=== PATIENT | female | born 1995 ===

== ENCOUNTER 2017-03-28 15:20 | Inpatient (IN) ==
[2017-03-28 16:39] LABS: Basophils % 0.1 % (0.0-0.8); Hematocrit 34.3 VOL% (35.7-47.0); Hemoglobin 11.2 GM/DL (12.0-16.0); Immature Granulocytes % 0.8 %; Immature Granulocytes Absolute 0.15 #; Lymphocytes # 0.9 10*3/uL (1.4-4.0); Lymphocytes % 4.9 % (21.3-54.2); Mean Corpuscular HGB Conc 32.7 GM/DL (32-36); Mean Corpuscular Hemoglobin 30 PG (27-34); Mean Platelet Volume 11.8 FL (9.6-12.0); Monocytes # 0.5 10*3/uL (0.11-0.8); Monocytes % 2.5 % (1.7-12.7); Neutrophils # 16.6 10*3/uL (1.4-7.4); Neutrophils % 91.7 % (38.7-73.9); Platelet Count 248 T/CUMM (130-400); Red Blood Count 3.77 MC/CUMM (3.8-5.5); Red Cell Distribution Width 14.5 % (9.3-17.3); White Blood Count 18.1 T/CUMM (4-12)
[2017-03-28] MEDS ORDERED: ONDANSETRON 4 MG/2 ML VIAL IV PRN (16:41)
[2017-03-28 16:55] LABS: Calcium 8.8 MG/DL (8.5-10.1); Osmolality,Calculated 284.1 MOS/KG (273-304); Potassium 3.7 MMOL/L (3.5-5.1)
[2017-03-28 17:07] LABS: Band Neutrophils 1 % (0-10); Lymphocytes 3 % (20-55); Platelet Estimate Normal; Segmented Neutrophils 95 % (50-85); Total Cells Counted 100
[2017-03-28] MEDS: LACTATED RINGERS 1,000 ML IV SCH (17:45)
[2017-03-28] MEDS: PIPERACILLIN/TAZOBACTAM 3,375 MG in SODIUM CHLORIDE 0.9% 100 ML IV SCH (17:50)
[2017-03-28] MEDS: oxyCODONE/ACETAMINOPHEN 5-325 MG TABLET PO PRN (18:20)
--- NOTE | 2017-03-28 19:21 | OB/GYN Consult Note ---
Assessment and Plan (1) Labial abscess Status: Acute Assessment and plan: IV fluids, IV Zosyn, analgesic sitz baths continue present therapy will check a CBC with differential chemistry and urinalysis. Current Visit: Yes History of Present Illness Chief complaint: Labial abscess History of present illness: Ms. Gill is a 22 year old female Status post vaginal delivery approximately 8 weeks who presents with a red swollen localized edematous right labia. The labia was not fluctuant, she denies any fever chills, nor severe vaginal discharge. Symptoms have been progressing over the last week. She was evaluated in the ER in [place] received IV Rocephin and also analgesic and was followed by office on today's visit. The patient will be admitted for IV antibiotics sitz baths analgesic for the next 24-36 hours. 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 - Constitutional Vitals: Vital Signs Temp Pulse Resp BP Pulse Ox 03/28/17 16:15 98.2 F 80 18 119/65 96 General appearance: mild distress - Head Head exam: Present: normal inspection - Eye Eye exam: Present: EOMI Pupils: Present: ELVIN - ENT ENT exam: Present: normal exam - Neck Neck exam: Present: normal inspection - Respiratory Respiratory exam: Present: clear to auscultation bilaterally - Breast Breasts: as per HPI Menstruation: as per HPI - Cardiovascular Cardiovascular exam: Present: regular rate and rhythm - GI/Abdominal GI/Abdominal exam: Present: normal bowel sounds - Extremities Exam Extremities exam: Present: normal inspection - Back Exam Back exam: Present: normal inspection - Neurological Exam Neurological exam: Present: alert, oriented X3 - Psychiatric Psychiatric exam: Present: normal affect - Skin Skin exam: Present: normal color Results - Labs CBC & BMP: 03/28/17 16:23 03/28/17 16:23
[2017-03-28] MEDS: IBUPROFEN 800 MG TABLET PO PRN (22:00)
[2017-03-29] MEDS: PIPERACILLIN/TAZOBACTAM 3,375 MG in SODIUM CHLORIDE 0.9% 100 ML IV SCH ×3 (01:02→16:32)
[2017-03-29] MEDS: LACTATED RINGERS 1,000 ML IV SCH ×2 (05:44→16:32)
[2017-03-29] MEDS: oxyCODONE/ACETAMINOPHEN 5-325 MG TABLET PO PRN ×2 (07:25→16:25)
[2017-03-29] MEDS: IBUPROFEN 800 MG TABLET PO PRN (12:31)
--- NOTE | 2017-03-29 19:04 | Progress Note ---
Assessment and Plan (1) Labial abscess Status: Acute Assessment and plan: IV fluids, IV Zosyn, analgesic sitz baths continue present therapy will check a CBC with differential chemistry and urinalysis. Current Visit: Yes Family Medicine PN Sub Interval history: Labial abscess, abscess initially started to drain today. Cultured pending. Patient is denied any fever or chills. Will check a CBC with differential continue with IV antibiotics. We will I&D the labial abscess tomorrow on 30 March risks and benefits thoroughly discussed she is in full agreement. Exam (Progress Note) - Constitutional Vitals: Period Temp Pulse Resp BP Sys/Mulligan Pulse Ox Last 24 Hr 97.2 F-98.6 F 69-98 18-22 110-127/55-77 94-98 Results - Labs CBC & BMP: 03/28/17 16:23 03/28/17 16:23
[2017-03-29 19:27] LABS: Basophils % 0.2 % (0.0-0.8); Eosinophils # 0.1 10*3/uL (0.0-0.87); Hemoglobin 10.6 GM/DL (12.0-16.0); Immature Granulocytes % 0.7 %; Lymphocytes # 2.2 10*3/uL (1.4-4.0); Lymphocytes % 15.3 % (21.3-54.2); Mean Corpuscular HGB Conc 33.1 GM/DL (32-36); Mean Corpuscular Hemoglobin 30 PG (27-34); Mean Corpuscular Volume 90.4 FL (87-102); Mean Platelet Volume 11.8 FL (9.6-12.0); Monocytes # 0.7 10*3/uL (0.11-0.8); Monocytes % 4.6 % (1.7-12.7); Neutrophils # 11.2 10*3/uL (1.4-7.4); Neutrophils % 78.2 % (38.7-73.9); Platelet Count 231 T/CUMM (130-400); Red Blood Count 3.54 MC/CUMM (3.8-5.5); Red Cell Distribution Width 14.8 % (9.3-17.3); White Blood Count 14.3 T/CUMM (4-12)
[2017-03-30] MEDS: PIPERACILLIN/TAZOBACTAM 3,375 MG in SODIUM CHLORIDE 0.9% 100 ML IV SCH ×3 (00:15→20:33)
[2017-03-30] MEDS: oxyCODONE/ACETAMINOPHEN 5-325 MG TABLET PO PRN ×2 (00:15→17:58)
[2017-03-30 05:37] LABS: Basophils % 0.2 % (0.0-0.8); Eosinophils # 0.2 10*3/uL (0.0-0.87); Eosinophils % 1.5 % (0.00-10.9); Hematocrit 32.3 VOL% (35.7-47.0); Hemoglobin 10.3 GM/DL (12.0-16.0); Immature Granulocytes % 0.8 %; Lymphocytes # 2.4 10*3/uL (1.4-4.0); Lymphocytes % 19.8 % (21.3-54.2); Mean Corpuscular HGB Conc 31.9 GM/DL (32-36); Mean Corpuscular Hemoglobin 29 PG (27-34); Mean Corpuscular Volume 91.8 FL (87-102); Mean Platelet Volume 11.9 FL (9.6-12.0); Monocytes # 0.7 10*3/uL (0.11-0.8); Monocytes % 5.6 % (1.7-12.7); Neutrophils # 8.7 10*3/uL (1.4-7.4); Neutrophils % 72.1 % (38.7-73.9); Platelet Count 225 T/CUMM (130-400); Red Blood Count 3.52 MC/CUMM (3.8-5.5); Red Cell Distribution Width 14.7 % (9.3-17.3); White Blood Count 12.1 T/CUMM (4-12)
[2017-03-30 06:08] LABS: Hypochromasia Slight; Lymphocytes 21 % (20-55); Platelet Estimate Adequate; Segmented Neutrophils 73 % (50-85); Total Cells Counted 100
[2017-03-30 06:09] LABS: Ovalocytes Slight
[2017-03-30] MEDS ORDERED: PANTOPRAZOLE 40 MG TABLET PO ONE (08:52)
[2017-03-30] MEDS ORDERED: DIAZEPAM 5 MG TABLET PO ONE (08:52)
[2017-03-30] MEDS: LACTATED RINGERS 1,000 ML IV SCH (09:32)
[2017-03-30] MEDS ORDERED: ceFAZolin 1,000 MG VIAL ONE (10:25)
--- NOTE | 2017-03-30 10:39 | Operative Note ---
Date of procedure: 03/30/17 Procedure: Preoperative diagnosis: [] Right labial abscess Postoperative diagnosis: Same Anesthesia:[] General Estimated blood loss: [] 15 cc Surgeon: Dr. Pappas Findings: [] Large erythematous right labia with a small amount of pustular drainage extruding from the tiny opening Complications: None Procedure: I&D of a right labial abscess Patient was taken to the operating suite administration of general anesthesia placed by position. Perineum was prepped and draped in usual manner for major surgery. Small incision was made approximately 1 cm in length over the small area of drainage. Cultures were obtained using a Q-tip this was used to break up any loculated area of pus. Irrigation with syringe using 1 g of Ancef was then used into the opening. Using quarter inch iodoform gauze this was packed into the opening. Hemostasis was maintained all instruments were removed patient tolerated procedure well and explained the operative take care of him in stable condition. [] Surgeon / Physician: Walter Pappas Results - Labs CBC & BMP: 03/30/17 04:55 03/28/17 16:23 Discharge Plan - Discharge Medications No Action No Known Home Medications [No Known Home Medications] - Follow Up or Referral - Forms/Instructions
--- NOTE | 2017-03-30 10:53 | Anesthesia Post-Op ---
Anesthesia Post OP - Post Ansesthetic Evaluation Patient seen in post op: Yes Resp: within normal limits CV: within normal limits Mental: within normal limits Temp: within normal limits [id number]: within normal limits Nausea and Vomiting: within normal limits Pain: within normal limits
[2017-03-30] MEDS ORDERED: ONDANSETRON 4 MG/2 ML VIAL IV PRN (10:54)
[2017-03-30] MEDS ORDERED: SEVOFLURANE 1 UNIT/15 MINUTE INH ONE (10:57)
[2017-03-30] MEDS ORDERED: fentaNYL 100 MCG/2 ML VIAL ONE (10:57)
[2017-03-30] MEDS ORDERED: PROPOFOL 200 MG/20 ML VIAL IV ONE (10:57)
[2017-03-30] MEDS ORDERED: ACETAMINOPHEN 1,000 MG/100 ML VIAL IV ONE (10:58)
[2017-03-30] MEDS ORDERED: MIDAZOLAM 2 MG/2 ML VIAL ONE (10:58)
[2017-03-30] MEDS ORDERED: LACTATED RINGERS 1,000 ML IV SCH (11:00)
[2017-03-30] MEDS: HYDROmorphone 2 MG/1 ML VIAL IV PRN ×3 (11:02→11:24)
[2017-03-30] MEDS: IBUPROFEN 800 MG TABLET PO PRN (14:22)
[2017-03-30] MEDS: MEPERIDINE 50 MG TABLET PO PRN (20:33)
[2017-03-31] MEDS: PIPERACILLIN/TAZOBACTAM 3,375 MG in SODIUM CHLORIDE 0.9% 100 ML IV SCH ×3 (03:13→21:01)
[2017-03-31] MEDS: MEPERIDINE 50 MG TABLET PO PRN (09:52)
[2017-03-31] MEDS: LACTATED RINGERS 1,000 ML IV SCH (09:53)
[2017-03-31 11:28] LABS: Basophils % 0.2 % (0.0-0.8); Eosinophils # 0.3 10*3/uL (0.0-0.87); Hemoglobin 10.7 GM/DL (12.0-16.0); Immature Granulocytes % 2.2 %; Lymphocytes # 2.7 10*3/uL (1.4-4.0); Mean Corpuscular HGB Conc 33.4 GM/DL (32-36); Mean Corpuscular Hemoglobin 30 PG (27-34); Mean Corpuscular Volume 89.4 FL (87-102); Mean Platelet Volume 11.3 FL (9.6-12.0); Monocytes # 0.6 10*3/uL (0.11-0.8); Monocytes % 6.7 % (1.7-12.7); Neutrophils # 5.2 10*3/uL (1.4-7.4); Neutrophils % 57.9 % (38.7-73.9); Platelet Count 244 T/CUMM (130-400); Red Blood Count 3.58 MC/CUMM (3.8-5.5); Red Cell Distribution Width 14.5 % (9.3-17.3); White Blood Count 8.9 T/CUMM (4-12)
[2017-03-31 11:48] LABS: Eosinophils 4 % (0-10); Hypochromasia 1+; Lymphocytes 35 % (20-55); Platelet Estimate Adequate; Segmented Neutrophils 55 % (50-85); Total Cells Counted 100
--- NOTE | 2017-03-31 12:06 | Progress Note ---
Assessment and Plan (1) Labial abscess Status: Acute Assessment and plan: IV fluids, IV Zosyn, analgesic sitz baths continue present therapy will check a CBC with differential chemistry and urinalysis. Current Visit: Yes Family Medicine PN Sub Interval history: Postop day #1 Status post I&D of a right labial abscess. Awaiting cultures Patient is remained afebrile white count is decreased from 18-12 will check a CBC with differential today. Possible discharge in the a.m. Continue present therapy Exam (Progress Note) - Constitutional Vitals: Period Temp Pulse Resp BP Sys/Mulligan Pulse Ox Last 24 Hr 97.6 F-99.8 F 79-93 16-20 109-132/58-79 93-98 Results - Labs CBC & BMP: 03/31/17 11:22 03/28/17 16:23
[2017-03-31] MEDS: oxyCODONE/ACETAMINOPHEN 5-325 MG TABLET PO PRN (13:21)
[2017-04-01] MEDS: PIPERACILLIN/TAZOBACTAM 3,375 MG in SODIUM CHLORIDE 0.9% 100 ML IV SCH ×2 (04:08→11:52)
--- NOTE | 2017-04-01 17:34 | Discharge Summary ---
Hospital Course - Hospital Course Hospital Course: Postop day #3 Status post I&D of a labial abscess. Final cultures demonstrated staph aureus methicillin-resistant. This patient was taken to surgery I indeed cultures were obtained small amount of drainage was obtained with loculated pustular material. Incision was packed which removed 24 hours after surgery she ambulated well voiding well and was afebrile and is being discharged to be followed up in approximately 2 weeks. Patient be discharged on erythromycin and also Tylenol threes Diagnosis - Discharge Diagnosis (1) Labial abscess Status: Acute Specialty Discharge - Follow Up or Referrals Follow up with: Walter Pappas MD [Physician] - 2 Weeks (CALL OFFICE ON Monday TO SET UP FOLLOW UP APPT. ) Discharge Plan - Discharge Data Condition at Discharge: Stable Discharge Diet: advance to your usual diet Activity: resume usual activities as tolerated Hygiene: no restrictions Driving: not until seen by doctor Contact your physician if you experience:: fever over 101, Bleeding - Discharge Medications No Action No Known Home Medications [No Known Home Medications] - Follow Up or Referral Follow Up: Walter Pappas MD [Physician] - 2 Weeks (CALL OFFICE ON Monday TO SET UP FOLLOW UP APPT. ) - Forms/Instructions Instructions: Abscess (GEN) Exam - Constitutional Vitals: Period Temp Pulse Resp BP Sys/Mulligan Pulse Ox Last 24 Hr 96.7 F-98.4 F 66-91 16-20 102-118/58-70 94-96 Discharge Results Procedures and tests throughout hospitalization: Pending Orders 03/30/17 Abscess Culture Routine Anaerobic Culture Routine Labs on day of discharge: Preliminary micro results at discharge 03/30/17 Unknown Anaerobic Culture - Preliminary Vulva Gram Positive Cocci DS: Provider Date of admission: 03/29/17 12:37 Primary care physician: Gaby Bolton MD Attending physician on admission: Walter Pappas MD Discharging clinician: Walter Pappas MD
[2017-04-01 17:36] VITALS: BP 127/76
== END 2017-04-01 17:42 | disposition home or self-care (01) | DRG 531 ==
LOC: N.4EOUT 15:20 → N.OB 15:20 → N.ADMINP 15:23 → N.2E 16:10 → EDSTATUS 03-30 16:58
PROVIDERS: ADMIT Obstetrics & Gynecology; ATTEND Obstetrics & Gynecology

== ENCOUNTER 2020-08-18 04:15 | Inpatient (IN) ==
[2020-08-18] MEDS ORDERED: BUTORPHANOL 2 MG/ML VIAL IV PRN (04:23)
[2020-08-18] MEDS ORDERED: LACTATED RINGERS 1,000 ML IV ONE ×2 (04:23→04:41)
[2020-08-18] MEDS ORDERED: ONDANSETRON 4 MG/2 ML VIAL IV PRN ×2 (04:23→07:05)
[2020-08-18] MEDS ORDERED: LACTATED RINGERS 1,000 ML IV SCH (04:30)
[2020-08-18] MEDS ORDERED: OXYTOCIN/LR 20 UNIT/1,000 ML BAG IV SCH (04:30)
[2020-08-18] MEDS ORDERED: diphenhydrAMINE 50 MG/1 ML VIAL IV PRN ×2 (04:40)
[2020-08-18] MEDS ORDERED: hydrOXYzine HCL 25 MG/1 ML VIAL IM PRN (04:40)
[2020-08-18] MEDS ORDERED: ePHEDrine 50 MG/ML VIAL IV PRN (04:40)
[2020-08-18] MEDS ORDERED: NALOXONE 0.4 MG/ML VIAL IV PRN (04:40)
[2020-08-18] MEDS ORDERED: PROMETHAZINE 25 MG/1 ML VIAL IM ONE (04:40)
[2020-08-18] MEDS ORDERED: FAMOTIDINE 20 MG/2 ML VIAL IV ONE (04:41)
[2020-08-18] MEDS ORDERED: CITRIC ACID/SODIUM CITRATE 30 ML UDCUP PO ONE (04:41)
[2020-08-18] MEDS ORDERED: AMPICILLIN INJ 2,000 MG in SODIUM CHLORIDE 0.9% 100 ML IV ONE (04:52)
[2020-08-18] MEDS ORDERED: fentaNYL 2 MCG/ROPIV 0.2% EPID 100 ML EPIDURAL SCH (05:00)
[2020-08-18 06:09] LABS: Basophils % 0.3 % (0.0-0.8); Eosinophils # 0.1 10*3/uL (0.0-0.87); Eosinophils % 0.6 % (0.00-10.9); Hematocrit 36.6 VOL% (35.7-47.0); Hemoglobin 11.4 GM/DL (12.0-16.0); Immature Granulocytes % 1.6 %; Immature Granulocytes Absolute 0.17 #; Lymphocytes # 2.5 10*3/uL (1.4-4.0); Lymphocytes % 23.1 % (21.3-54.2); Mean Corpuscular HGB Conc 31.1 GM/DL (32-36); Mean Corpuscular Volume 86.5 FL (87-102); Monocytes % 6.2 % (1.7-12.7); NRBC # 0.02 10*3/uL; Neutrophils % 68.2 % (38.7-73.9); Platelet Count 212 T/CUMM (130-400); Red Blood Count 4.23 MC/CUMM (3.8-5.5); Red Cell Distribution Width 15.1 % (9.3-17.3); White Blood Count 10.9 T/CUMM (4-12)
[2020-08-18] MEDS ORDERED: miSOPROStoL 200 MCG TABLET ONE (06:16)
[2020-08-18] MEDS ORDERED: TRANEXAMIC ACID 1,000 MG/10 ML VIAL ONE (06:16)
[2020-08-18] MEDS ORDERED: OXYTOCIN/LR 20 UNIT/1,000 ML BAG IV ONE ×2 (06:16→07:05)
[2020-08-18] MEDS ORDERED: CARBOPROST TROMETHAMINE 250 MCG/ML AMP IM ONE (06:17)
[2020-08-18] MEDS ORDERED: METHYLERGONOVINE 0.2 MG/1 ML AMP ONE (06:17)
[2020-08-18] MEDS ORDERED: OXYTOCIN/LR 30 UNIT/1,000 ML BAG IV ONE (06:30)
[2020-08-18] MEDS ORDERED: LIDOCAINE 1% 50 ML VIAL ONE (06:31)
[2020-08-18] MEDS ORDERED: BUTORPHANOL 1 MG/ML VIAL ONE (06:31)
[2020-08-18 06:34] LABS: Albumin 2.6 G/DL (3.4-5.0); Bilirubin,Total 0.7 MG/DL (0.2-1.0); Calcium 9.7 MG/DL (8.5-10.1); Osmolality,Calculated 275.7 MOS/KG (273-304); Total Protein 7.4 G/DL (6.4-8.3)
[2020-08-18] MEDS ORDERED: MEASLES/MUMPS/RUBELLA VACCINE 0.5 ML VIAL SUBCUT ONE (07:05)
[2020-08-18] MEDS ORDERED: DIPH/TET/ACEL PERT BOOSTER VACCINE 0.5 ML VIAL IM ONE (07:05)
[2020-08-18] MEDS ORDERED: ACETAMINOPHEN 325 MG TABLET PO PRN (07:05)
[2020-08-18] MEDS ORDERED: oxyCODONE/ACETAMINOPHEN 5-325 MG TABLET PO PRN (07:05)
[2020-08-18] MEDS ORDERED: BENZOCAINE 20%/MENTHOL 0.5% SPRAY 56 GM CAN TOP PRN (07:05)
[2020-08-18] MEDS ORDERED: WITCH HAZEL PADS 100/JAR TOP PRN (07:05)
[2020-08-18] MEDS ORDERED: BISACODYL 10 MG SUPP RECTAL PRN (07:05)
[2020-08-18] MEDS ORDERED: RHO(D) IMMUNE GLOBULIN 300 MCG SYRINGE IM ONE (07:05)
[2020-08-18] MEDS ORDERED: LANOLIN 50% CREAM 0.3 OZ TUBE TOP PRN (07:05)
[2020-08-18] MEDS ORDERED: HYDROCORTISONE 2.5% RECTAL CREAM 30 GM TUBE TOP PRN (07:05)
[2020-08-18 07:06] LABS: Cord Venous Blood HCO3 21.1 MMOL/L; Cord Venous Blood PCO2 40.1 MMHG; Cord Venous Blood PO2 31.9
[2020-08-18 07:11] LABS: Cord Arterial Blood HCO3 20.5 MMOL/L
[2020-08-18] MEDS: IBUPROFEN 800 MG TABLET PO PRN ×2 (09:47→19:23)
[2020-08-18] MEDS: DOCUSATE SODIUM 100 MG CAPSULE PO SCH ×2 (09:48→20:09)
[2020-08-18] MEDS: oxyCODONE/ACETAMINOPHEN 5-325 MG TABLET PO PRN (19:25)
[2020-08-18] MEDS: MAGNESIUM HYDROXIDE SUSP 30 ML UDCUP PO PRN (23:34)
[2020-08-19 05:48] LABS: Basophils % 0.4 % (0.0-0.8); Eosinophils # 0.1 10*3/uL (0.0-0.87); Eosinophils % 1.2 % (0.00-10.9); Hematocrit 27.2 VOL% (35.7-47.0); Immature Granulocytes % 1.4 %; Immature Granulocytes Absolute 0.15 #; Lymphocytes # 2.9 10*3/uL (1.4-4.0); Lymphocytes % 27.2 % (21.3-54.2); Mean Corpuscular HGB Conc 32.4 GM/DL (32-36); Mean Platelet Volume 12.8 FL (9.6-12.0); Monocytes % 6.5 % (1.7-12.7); Neutrophils % 63.3 % (38.7-73.9); Platelet Count 185 T/CUMM (130-400); White Blood Count 10.8 T/CUMM (4-12)
[2020-08-19 05:50] LABS: Hemoglobin 8.8 GM/DL (12.0-16.0)
[2020-08-19 06:16] LABS: Hypochromasia 1+; Macrocytosis Slight; Platelet Estimate Adequate; Polychromasia Slight
[2020-08-19] MEDS: FERROUS SULFATE 325 MG TABLET PO SCH ×2 (09:10→20:04)
[2020-08-19] MEDS: DOCUSATE SODIUM 100 MG CAPSULE PO SCH ×2 (09:12→20:04)
[2020-08-19] MEDS: IBUPROFEN 800 MG TABLET PO PRN ×2 (11:30→20:04)
[2020-08-19] MEDS: MAGNESIUM HYDROXIDE SUSP 30 ML UDCUP PO PRN (11:35)
[2020-08-19] MEDS: oxyCODONE/ACETAMINOPHEN 5-325 MG TABLET PO PRN (22:24)
[2020-08-20 07:07] VITALS: BP 96/62
[2020-08-20] MEDS: FERROUS SULFATE 325 MG TABLET PO SCH (09:55)
[2020-08-20] MEDS: DOCUSATE SODIUM 100 MG CAPSULE PO SCH (09:55)
[2020-08-20] MEDS: IBUPROFEN 800 MG TABLET PO PRN (09:58)
== END 2020-08-20 12:45 | disposition home or self-care (01) | DRG 560 ==
LOC: N.LDOUT 04:15 → N.LD 04:17 → N.OB 09:20
PROVIDERS: ADMIT Obstetrics & Gynecology; ATTEND Obstetrics & Gynecology

== ENCOUNTER 2022-06-03 06:10 | Inpatient (IN) ==
[2022-06-03] MEDS ORDERED: MEPERIDINE 50 MG/1 ML VIAL IV PRN (06:19)
[2022-06-03] MEDS ORDERED: TRANEXAMIC ACID 1,000 MG in SODIUM CHLORIDE 0.9% 100 ML IV PRN (06:19)
[2022-06-03] MEDS ORDERED: METHYLERGONOVINE 0.2 MG/1 ML AMP IM PRN (06:19)
[2022-06-03] MEDS ORDERED: miSOPROStoL 200 MCG TABLET RECTAL PRN (06:19)
[2022-06-03] MEDS ORDERED: OXYTOCIN/LR 20 UNIT/1,000 ML BAG IV ONE ×2 (06:19→16:25)
[2022-06-03] MEDS ORDERED: CARBOPROST TROMETHAMINE 250 MCG/ML AMP IM PRN (06:19)
[2022-06-03] MEDS ORDERED: ONDANSETRON 4 MG/2 ML VIAL IV PRN (06:19)
[2022-06-03] MEDS ORDERED: LACTATED RINGERS 1,000 ML IV SCH (06:30)
[2022-06-03] MEDS ORDERED: OXYTOCIN/LR 20 UNIT/1,000 ML BAG IV SCH (06:30)
[2022-06-03 06:50] LABS: Basophils % 0.5 % (0.0-0.8); Eosinophils # 0.1 10*3/uL (0.0-0.87); Immature Granulocytes % 1.3 %; Immature Granulocytes Absolute 0.08 #; Lymphocytes # 1.7 10*3/uL (1.4-4.0); Lymphocytes % 27.9 % (21.3-54.2); Mean Platelet Volume 12.7 FL (9.6-12.0); Monocytes # 0.3 10*3/uL (0.11-0.8); Monocytes % 5.6 % (1.7-12.7); NRBC # 0.09 10*3/uL; Neutrophils % 62.7 % (38.7-73.9); Platelet Count 208 T/CUMM (130-400); Red Blood Count 4.08 MC/CUMM (3.8-5.5)
[2022-06-03] MEDS ORDERED: ePHEDrine 50 MG/ML VIAL IV PRN (06:53)
[2022-06-03] MEDS ORDERED: LACTATED RINGERS 1,000 ML IV ONE (06:53)
[2022-06-03] MEDS ORDERED: CITRIC ACID/SODIUM CITRATE 30 ML UDCUP PO ONE (06:53)
[2022-06-03] MEDS ORDERED: FAMOTIDINE 20 MG/2 ML VIAL IV ONE (06:53)
[2022-06-03] MEDS ORDERED: fentaNYL 2 MCG/ROPIV 0.2% EPID 100 ML EPIDURAL SCH (07:00)
[2022-06-03 07:08] LABS: Albumin 2.6 G/DL (3.4-5.0); Bilirubin,Total 0.5 MG/DL (0.20-1.00); Calcium 9.1 MG/DL (8.5-10.1); Osmolality,Calculated 272.7 MOS/KG (273-304); Total Protein 7.2 G/DL (6.4-8.2)
[2022-06-03] MEDS ORDERED: TERBUTALINE 1 MG/1 ML VIAL ONE (09:48)
[2022-06-03] MEDS ORDERED: miSOPROStoL 200 MCG TABLET ONE (11:56)
[2022-06-03] MEDS ORDERED: TRANEXAMIC ACID 1,000 MG/10 ML VIAL ONE (11:56)
[2022-06-03] MEDS ORDERED: CARBOPROST TROMETHAMINE 250 MCG/ML AMP IM ONE (11:57)
[2022-06-03] MEDS ORDERED: METHYLERGONOVINE 0.2 MG/1 ML AMP ONE (11:57)
[2022-06-03 12:56] LABS: Cord Venous Blood HCO3 22.6 MMOL/L
[2022-06-03] MEDS ORDERED: MEASLES/MUMPS/RUBELLA VACCINE 0.5 ML VIAL SUBCUT ONE (16:25)
[2022-06-03] MEDS ORDERED: BISACODYL 10 MG SUPP RECTAL PRN (16:25)
[2022-06-03] MEDS ORDERED: WITCH HAZEL PADS 100/JAR TOP PRN (16:25)
[2022-06-03] MEDS ORDERED: RHO(D) IMMUNE GLOBULIN 300 MCG SYRINGE IM ONE (16:25)
[2022-06-03] MEDS ORDERED: BENZOCAINE 20%/MENTHOL 0.5% SPRAY 56 GM CAN TOP PRN (16:25)
[2022-06-03] MEDS ORDERED: DIPH/TET/ACEL PERT BOOSTER VACCINE 0.5 ML VIAL IM ONE (16:25)
[2022-06-03] MEDS ORDERED: HYDROCORTISONE 2.5% RECTAL CREAM 30 GM TUBE TOP PRN (16:25)
[2022-06-03] MEDS ORDERED: LANOLIN 50% CREAM 0.3 OZ TUBE TOP PRN (16:25)
[2022-06-03] MEDS ORDERED: ACETAMINOPHEN 325 MG TABLET PO PRN (16:25)
[2022-06-03] MEDS ORDERED: oxyCODONE/ACETAMINOPHEN 5-325 MG TABLET PO PRN ×2 (16:25)
[2022-06-03] MEDS: IBUPROFEN 800 MG TABLET PO PRN (16:34)
[2022-06-03] MEDS: DOCUSATE SODIUM 100 MG CAPSULE PO SCH (22:44)
[2022-06-03] MEDS: MAGNESIUM HYDROXIDE SUSP 30 ML UDCUP PO PRN (22:59)
[2022-06-04] MEDS ORDERED: POLYETHYLENE GLYCOL POWDER 17 GM PACK PO PRN (01:43)
[2022-06-04 06:31] LABS: Basophils % 0.2 % (0.0-0.8); Eosinophils # 0.1 10*3/uL (0.0-0.87); Eosinophils % 1.4 % (0.00-10.9); Hemoglobin 8.2 GM/DL (12.0-16.0); Immature Granulocytes % 1.3 %; Immature Granulocytes Absolute 0.11 #; Lymphocytes # 2.2 10*3/uL (1.4-4.0); Lymphocytes % 24.7 % (21.3-54.2); Mean Corpuscular HGB Conc 29.3 GM/DL (32-36); Mean Corpuscular Volume 75.9 FL (87-102); Mean Platelet Volume 12.1 FL (9.6-12.0); Monocytes # 0.5 10*3/uL (0.11-0.8); Monocytes % 5.4 % (1.7-12.7); NRBC # 0.06 10*3/uL; Platelet Count 169 T/CUMM (130-400); Red Blood Count 3.69 MC/CUMM (3.8-5.5); Red Cell Distribution Width 17.3 % (9.3-17.3); White Blood Count 8.7 T/CUMM (4-12)
[2022-06-04] MEDS: DOCUSATE SODIUM 100 MG CAPSULE PO SCH ×3 (07:44→21:15)
[2022-06-04] MEDS: IBUPROFEN 800 MG TABLET PO PRN ×2 (07:45→16:20)
[2022-06-04] MEDS: FERROUS SULFATE 325 MG TABLET PO SCH (21:15)
[2022-06-05] MEDS: FERROUS SULFATE 325 MG TABLET PO SCH (09:52)
[2022-06-05] MEDS: DOCUSATE SODIUM 100 MG CAPSULE PO SCH (09:52)
[2022-06-05] MEDS: MAGNESIUM HYDROXIDE SUSP 30 ML UDCUP PO PRN (09:52)
[2022-06-05] MEDS: IBUPROFEN 800 MG TABLET PO PRN (09:52)
[2022-06-05 12:36] VITALS: BP 110/62
== END 2022-06-05 14:00 | disposition home or self-care (01) | DRG 807 ==
LOC: N.LD 06:10 → N.OB 16:25
PROVIDERS: ADMIT Obstetrics & Gynecology; ATTEND Obstetrics & Gynecology